=== PATIENT | female | born 1975 | race African-American/Black ===

== ENCOUNTER 2017-10-17 22:32 | Emergency (ER) | payer OTHER ==
[~2017-10-17 22:32] MED LIST: ADDE25CA PO; LEXA5SOL PO; NAPR-576 PO; NEXI10GR PO; SLOWTAB PO; SYNT112T PO
[2017-10-17 22:34] VITALS: BP 158/92; PULSE 93; RESP 20; TEMP 97.5; O2SAT 97
[2017-10-17] MEDS ORDERED: IBUP-1129 PO (23:09)
[2017-10-17] MEDS ORDERED: ADDE25CA PO (23:09)
[2017-10-17] MEDS ORDERED: FLUT1SPR5 EACH NARE (23:09)
[2017-10-17] MEDS ORDERED: LEVO150T7 PO (23:09)
[2017-10-17] MEDS ORDERED: ONDANSETRON HCL 4 MG/2 ML VIAL IV PUSH ONE (23:30)
[2017-10-17] MEDS ORDERED: SODIUM CHLORIDE 0.9% FLUSH 10 ML FLUSH IVF PRN (23:30)
[2017-10-17] MEDS ORDERED: KETOROLAC TROMETHAMINE 30 MG/ML (IVP) VIAL IV PUSH ONE (23:30)
--- NOTE | 2017-10-17 23:32 | PD ---
HPI Chief Complaint: Flank/Kidney Pain Time Seen by Provider: 22:53 Travel History International Travel<30 days: No Contact w/Intl Traveler<30days: No Traveled to known affect area: No History of Present Illness HPI The patient is a 42-year-old female that complains of right flank pain since the beginning of this month. She does have some nausea. She denies any dysuria but states she has occasional frequency of urination. She denies any fever. She states the pain is only on the right side and shoots down to her the right groin. She denies any previous history of urinary stones. She states there is no possibility of , she has had a hysterectomy. The pain is sharp and occasionally cramping and a 4/10. PFSH Past Medical History ADHD: Yes Cancer: No Cardiovascular Problems: No Diabetes: No Diminished Hearing: Yes ([place]) Endocrine: Yes (HYPOTHYROIDISM/RADIOACTIVE IDODINE [place]) Genitourinary: No Immune Disorder: No Musculoskeletal: No Neurologic: No Psychiatric: No Reproductive: No Respiratory: No Radiation Therapy: Yes (2007) Thyroid Disease: Yes Influenza Vaccination: Yes ?: Not : 3 Para: 3 Dilation and Curettage (D&C): Yes Past Surgical History Abdominal Surgery: Yes (CHOLECYSTECTOMY) Cardiac Surgery: No Cholecystectomy: Yes Gynecologic Surgery: Yes (HYSTERECTOMY, CYSTOCELL REPAIR, URETHRAL SLING) Hysterectomy: Yes Neurologic Surgery: No Pacemaker: No Thoracic Surgery: No Social History Alcohol Use: No Tobacco Use: No Substance Use: No Allergies-Medications (Allergen,Severity, Reaction): Coded Allergies: amoxicillin (Unverified Allergy, Severe, Hives, 05/01/17) Reported Meds & Prescriptions Reported Meds & Active Scripts Active Reported Motrin Ib (Ibuprofen) 200 Mg Tablet 800 Mg PO BID Flonase Nasal [place] (Fluticasone Nasal [place]) 50 Mcg/Act [place] 50 Mcg EACH NARE DAILY Adderall Xr 24 HR (Amphetamine-Dextroamphetamine ER 24 HR) 25 Mg Cap 25 Mg PO BID Once daily in the morning. Levothyroxine (Levothyroxine Sodium) 150 Mcg Tab 150 Mcg PO DAILY Review of Systems Except as stated in HPI: all other systems reviewed are Neg Physical Exam Narrative GENERAL: The patient is alert, oriented 3 and slight apparent distress with her right flank pain. Her vital signs show blood pressure 158/92 but are otherwise normal. SKIN: Focused skin assessment warm/dry. HEAD: Atraumatic. Normocephalic. EYES: Pupils equal and round. No scleral icterus. No injection or drainage. ENT: No nasal bleeding or discharge. Mucous membranes pink and moist. NECK: Trachea midline. No JVD. CARDIOVASCULAR: Regular rate and rhythm. No murmur appreciated. RESPIRATORY: No accessory muscle use. Clear to auscultation. Breath sounds equal bilaterally. GASTROINTESTINAL: Abdomen soft, with minimal discomfort over the right flank, nondistended. Hepatic and splenic margins not palpable. No guarding or rebound is present. Some of the tenderness is over the right ribs. MUSCULOSKELETAL: No obvious deformities. No clubbing. No cyanosis. No edema. NEUROLOGICAL: Awake and alert. No obvious cranial nerve deficits. Motor grossly within normal limits. Normal speech. PSYCHIATRIC: Appropriate mood and affect; insight and judgment normal. Data Data Last Documented VS Vital Signs Date Time Temp Pulse Resp B/P (MAP) Pulse Ox O2 Delivery O2 Flow Rate FiO2 10/18/17 00:05 71 16 125/88 (100) 97 Room Air 10/17/17 22:34 97.5 Orders Orders Urinalysis - C+S If Indicated (10/17/17 23:05) Complete Blood Count With Diff (10/17/17 23:28) Basic Metabolic Panel (Bmp) (10/17/17 23:28) Ct Abd/Pel W/O Iv Contrast (10/17/17 23:28) Ecg Monitoring (10/17/17 23:28) Iv Access Insert/Monitor (10/17/17 23:28) Ketorolac Inj (Toradol Inj) (10/17/17 23:30) Ondansetron Inj (Zofran Inj) (10/17/17 23:30) Sodium Chloride 0.9% Flush (Ns Flush) (10/17/17 23:30) Labs Laboratory Tests Test 10/17/17 23:05 10/17/17 23:40 Urine Color YELLOW Urine Turbidity CLEAR Urine pH 7.0 Urine Specific [place] 1.016 Urine Protein NEG mg/dL Urine Glucose (UA) NEG mg/dL Urine Ketones NEG mg/dL Urine Occult Blood TRACE Urine Nitrite NEG Urine Bilirubin NEG Urine Leukocyte Esterase NEG Urine RBC 3-5 /hpf Urine WBC 0-2 /hpf Urine Squamous Epithelial Cells 0-5 /hpf Urine Bacteria NONE /hpf Microscopic Urinalysis Comment CULT NOT INDICATED White Blood Count 6.5 TH/MM3 Red Blood Count 3.83 MIL/MM3 Hemoglobin 11.1 GM/DL Hematocrit 34.7 % Mean Corpuscular Volume 90.6 FL Mean Corpuscular Hemoglobin 29.0 PG Mean Corpuscular Hemoglobin Concent 32.0 % Red Cell Distribution Width 11.8 % Platelet Count 180 TH/MM3 Mean Platelet Volume 8.5 FL Neutrophils (%) (Auto) 34.5 % Lymphocytes (%) (Auto) 52.2 % Monocytes (%) (Auto) 8.2 % Eosinophils (%) (Auto) 4.7 % Basophils (%) (Auto) 0.4 % Neutrophils # (Auto) 2.2 TH/MM3 Lymphocytes # (Auto) 3.5 TH/MM3 Monocytes # (Auto) 0.5 TH/MM3 Eosinophils # (Auto) 0.3 TH/MM3 Basophils # (Auto) 0.0 TH/MM3 CBC Comment DIFF FINAL Differential Comment Blood Urea Nitrogen 11 MG/DL Creatinine 0.54 MG/DL Random Glucose 96 MG/DL Calcium Level 8.6 MG/DL Sodium Level 141 MEQ/L Potassium Level 3.7 MEQ/L Chloride Level 108 MEQ/L Carbon Dioxide Level 28.5 MEQ/L Anion Gap 5 MEQ/L Estimat Glomerular Filtration Rate 150 ML/MIN MDM Medical Decision Making Medical Screen Exam Complete: Yes Emergency Medical Condition: Yes Medical Record Reviewed: Yes Interpretation(s) The CT abdomen/pelvis without IV contrast shows no acute findings. Specifically , there is no evidence for obstructive uropathy. There is a previous cholecystectomy and mild constipation. The urinalysis shows trace blood but is otherwise normal and culture is not indicated. The CBC shows an anemia of 11.1 and hematocrit of 34.7 but is otherwise unremarkable. The basic metabolic profile is essentially normal. Differential Diagnosis Urinary stone, urinary tract infection, rib pain Narrative Course The patient appears to have rib pain. She also has some constipation on the CT. She will be given Motrin 600 mg 3 times daily and Compazine for nausea. She is to follow-up with a primary care physician. Diagnosis Primary Impression: Rib pain on right side Additional Instructions: As we discussed, you need to follow-up with your primary care physician. Apparently, you have had blood in her urine on multiple urine tests. He will get Compazine for nausea and the Motrin is one tablet 3 times daily for pain. Med/Other Pt SpecificInfo: Prescription(s) given Scripts Ibuprofen (Ibuprofen) 600 Mg Tab 600 MG PO TID, #44 TAB 0 Refills Prov: Sandro Lemos MD 10/18/17 Prochlorperazine Maleate (Prochlorperazine Maleate) 10 Mg Tab 10 MG PO Q6H Y for NAUSEA OR VOMITING, #30 TAB 0 Refills Prov: Sandro Lemos MD 10/18/17 Disposition: 01 DISCHARGE HOME Condition: Stable Sandro Lemos MD Oct 17, 2017 23:32
[2017-10-17 23:44] LABS: BILIRUBIN, URINE NEG (NEG); GLUCOSE,URINE NEG (NEG); KETONE, URINE NEG (NEG); NITRITE,URINE NEG (NEG); URINE LEUKOCYTE ESTERASE NEG (NEG)
[2017-10-17 23:45] VITALS: BP 138/93; PULSE 70; RESP 16; O2SAT 98
[2017-10-18] LABS: AUTOMATED NEUTROPHIL # 2.2 TH/MM3 (1.8-7.7); BASOPHIL % 0.4 % (0.0-2.0); EOSINOPHIL # 0.3 TH/MM3 (0-0.4); EOSINOPHIL % 4.7 % (0.0-4.0); HEMATOCRIT 34.7 % (35.0-46.0); HEMOGLOBIN 11.1 GM/DL (11.6-15.3); LYMPH % 52.2 % (9.0-44.0); LYMPHOCYTE # 3.5 TH/MM3 (1.0-4.8); MEAN CELL VOLUME 90.6 FL (80.0-100.0); MEAN PLATELET VOLUME 8.5 FL (7.0-11.0); MONO % 8.2 % (0.0-8.0); MONOCYTE # 0.5 TH/MM3 (0-0.9); NEUT % 34.5 % (16.0-70.0); PLATELET COUNT 180 TH/MM3 (150-450); RED BLOOD COUNT 3.83 MIL/MM3 (4.00-5.30); RED CELL DISTRIBUTION WIDTH 11.8 % (11.6-17.2); WHITE BLOOD COUNT 6.5 TH/MM3 (4.0-11.0)
[2017-10-18 00:05] VITALS: BP 125/88; PULSE 71; RESP 16; O2SAT 97
[2017-10-18 00:05] LABS: BLOOD, URINE TRACE (NEG)
[2017-10-18 00:06] LABS: SQUAMOUS EPITHELIAL CELL URINE 0-5 /hpf (0-5); URINE COLOR YELLOW (YELLW/STRAW); WBC, URINE 0-2 /hpf (0-5)
[2017-10-18 00:14] LABS: BICARBONATE 28.5 MEQ/L (21.0-32.0); CALCIUM 8.6 MG/DL (8.5-10.1)
[2017-10-18 00:18] LABS: CREATININE 0.54 MG/DL (0.50-1.00)
--- NOTE | 2017-10-18 00:44 | RADRPT ---
EXAM DATE/TIME: 10/17/2017 23:48 [facility] COMPARISON: No previous studies available for comparison. INDICATIONS : Right flank pain. ORAL CONTRAST: No oral contrast ingested. RADIATION DOSE: 15.76 CTDIvol (mGy) MEDICAL HISTORY : None SURGICAL HISTORY : Cholecystectomy. Hysterectomy.Urethral sling. ENCOUNTER: Initial ACUITY: 1 day PAIN SCALE: 7/10 LOCATION: Right flank TECHNIQUE: Volumetric scanning of the abdomen and pelvis was performed. Using automated exposure control and ad justment of the mA and/or kV according to patient size, radiation dose was kept as low as reasonably achievable to obtain optimal diagnostic quality images. DICOM format image data is available electro nically for review and comparison. FINDINGS: LOWER LUNGS: The visualized lower lungs are clear. LIVER: Homogeneous density without lesion. There is no dilation of the biliary tree. No calcified gallston es. SPLEEN: Normal size without lesion. PANCREAS: Within normal limits. KIDNEYS: Normal in size and shape. There is no mass, stone, or hydronephrosis. ADRENAL GLANDS: Within normal limits. VASCULAR: There is no aortic aneurysm. BOWEL/MESENTERY: The stomach, small bowel, and colon demonstrate no acute abnormality. There is no free intraperitone al air or fluid. ABDOMINAL WALL: Within normal limits. RETROPERITONEUM: There is no lymphadenopathy. BLADDER: No wall thickening or mass. REPRODUCTIVE: Within normal limits. INGUINAL: There is no lymphadenopathy or hernia. MUSCULOSKELETAL: Within normal limits for patient age. CONCLUSION: 1. No acute findings. Specifically no evidence for obstructive uropathy. Previous cholecystectomy. Claribel ld constipation. Dante Henry MD on October 18, 2017 at 0:36 Board Certified Radiologist. This report was verified electronically.
[2017-10-18 01:05] VITALS: BP 141/92; PULSE 70; RESP 16; O2SAT 97
[2017-10-18] MEDS ORDERED: PROC10TA PO (01:09)
[2017-10-18] MEDS ORDERED: IBUP-232 PO (01:09)
== END 2017-10-18 01:39 | disposition home or self-care (01) ==
LOC: PHED 22:32
DX: R07.81 Pleurodynia (principal); K59.00 Constipation, unspecified; E03.9 Hypothyroidism, unspecified; F90.9 Attention-deficit hyperactivity disorder, unspecified type; Z90.49 Acquired absence of other specified parts of digestive tract
CPT/HCPCS: 74176; 80048; 81001; 85025; 96374; 96375; 99284; J1885; J2405